=== PATIENT | female | born 1995 | race Caucasian/White ===

== ENCOUNTER 2025-07-10 21:37 | Emergency (ER) | payer OTHER ==
[2025-07-10] MEDS ORDERED: Sodium Chloride 0.9% 10 ML Syringe FLUSH PRN (21:45)
[2025-07-10] MEDS: Ondansetron 4 MG Tab.DIS ONE (22:00)
[2025-07-10 22:01] LABS: BASOPHILS ABSOLUTE AUTO 0.02 10^3/uL (0.00-0.10); BASOPHILS PERCENT AUTO 0.2 % (0.0-1.0); EOSINOPHILS ABSOLUTE AUTO 0.13 10^3/uL (0.10-0.30); EOSINOPHILS PERCENT AUTO 1.6 % (1.0-3.0); IMMATURE GRAN ABSOLUTE AUTO 0.01 10^3/uL (0.00-0.04); IMMATURE GRAN PERCENT AUTO 0.1 % (0.0-0.4); LYMPHOCYTES ABSOLUTE AUTO 4.03 10^3/uL (1.00-4.00); LYMPHOCYTES PERCENT AUTO 49.6 % (20.0-40.0); MEAN PLATELET VOLUME 9.7 fL (7.4-10.4); MONOCYTES ABSOLUTE AUTO 0.58 10^3/uL (0.10-0.80); MONOCYTES PERCENT AUTO 7.1 % (2.0-8.0); NEUTROPHILS ABSOLUTE AUTO 3.35 10^3/uL (2.50-7.00); NEUTROPHILS PERCENT AUTO 41.4 % (50.0-70.0); PLATELET COUNT,PLT 186 10^3/uL (150-400); RED BLOOD CELL COUNT 4.51 10^6/uL (3.80-5.50); RED CELL DISTRIBUTION WIDTH 13.9 % (11.5-14.5); WHITE BLOOD CELL COUNT,WBC 8.12 10^3/uL (5.00-10.00)
[2025-07-10] MEDS: Ondansetron 4 MG Tab.DIS PO ONE (22:04)
[2025-07-10 22:16] LABS: ALANINE AMINOTRANSFERASE,ALT 26.0 U/L (14-63); ASPARTATE AMNIOTRANSFERASE,AST 34.0 U/L (15-37); BILIRUBIN TOTAL 0.7 mg/dL (0.2-1.0); BLOOD UREA NITROGEN,BUN 15.0 mg/dL (7-18); CARBON DIOXIDE,CO2 24.9 mmol/L (21.0-32.0); CHLORIDE,CL 104.0 mmol/L (98-107); CREATININE 0.81 mg/dL (0.51-1.17); EST CRCL DRUG DOSING (CG) 80.32 mL/min; ESTIMATED GFR 100.0 mL/min (>=60); GLUCOSE RANDOM 131.0 mg/dL (70-140); POTASSIUM,K 3.0 mmol/L (3.5-5.1); PROTEIN TOTAL,TP 7.4 g/dL (6.4-8.2); SODIUM,NA 140.0 mmol/L (136-145)
[2025-07-10] MEDS: Ondansetron 4 MG/2 ML SDV IVPUSH ONE (22:58)
[2025-07-10 23:32] LABS: APPEARANCE,URINE SLIGHTLY CLOUDY (CLEAR); GLUCOSE,URINE NEGATIVE (NEGATIVE); OCCULT BLOOD,URINE NEGATIVE (NEGATIVE)
[2025-07-10 23:37] LABS: EPITHELIAL CELLS,URINE MANY /LPF
== END 2025-07-10 23:38 | disposition home or self-care (01) ==
LOC: KA.ED 21:37
DX: S90.32XA Contusion of left foot, initial encounter (principal); S10.91XA Abrasion of unspecified part of neck, initial encounter; S00.81XA Abrasion of other part of head, initial encounter; S40.212A Abrasion of left shoulder, initial encounter; Z79.899 Other long term (current) drug therapy; V59.9XXA Occupant (driver) (passenger) of pick-up truck or van injured in unspecified traffic accident, initial encounter
CPT/HCPCS: 71045; 72125; 72170; 80053; 81001; 85025; 96374; 99284; A9270; J2405